=== PATIENT | female | born 2000 | race Caucasian/White ===

== ENCOUNTER → 2020-07-27 | Outpatient (CLI) | payer OTHER, SELFPAY ==
[2020-07-27 11:38] VITALS: BMI 24.8
[2020-07-29 17:20] LABS: HPV Reflexed? NOT INDICATED
== END | disposition home or self-care (01) ==
PROVIDERS: PCP Family Medicine; Referring Provider Nurse Practitioner Women's Health; Visit Provider Nurse Practitioner Women's Health
DX: N94.9 Unspecified condition associated with female genital organs and menstrual cycle (principal); Z12.4 Encounter for screening for malignant neoplasm of cervix
CPT/HCPCS: 87070; 87205; 88175; G0145

== ENCOUNTER → 2020-09-22 15:21 | Outpatient (CLI) | payer SELFPAY ==
[2020-09-22 14:11] VITALS: BMI 24.8
[2020-09-22 15:46] LABS: Absolute Lymphocyte Count 2.51 X10^3/uL (0.83-4.51); Absolute Neutrophil Count 6.2 X10^3/uL (2.0-7.7); Basophil# 0.08 X10^3/uL; Basophil% 0.8 % (0-1); Eosinophil# 0.14 X10^3/uL; Eosinophils% 1.5 % (0-5); Hematocrit 36.9 % (37-47); Hemoglobin 12.5 g/dL (12.0-15.0); Lymphocyte # 2.51 X10^3/ul (0.83-4.51); Lymphocyte % 26.4 % (19-41); Mean Corp Hgb Conc 33.9 g/dL (32-36); Mean Corpuscular Volume 91.6 fL (81-99); Mean Platelet Vol. 10.6 fl (6.2-12.0); Monocyte# 0.54 X10^3/uL; Monocyte% 5.7 % (0-10); NRBC Flagged by Analyzer 0 % (0-5); Neutrophil # 6.21 X10^3/uL (2.7-7.7); Neutrophil % 65.3 % (47-70); Platelet Count 209 K/mm3 (150-450); RBC Distribution Width CV 11.6 % (11.6-14.6); Red Blood Count 4.03 M/mm3 (4.2-5.4); White Blood Count 9.5 K/mm3 (4.4-11.0)
[2020-09-23 08:09] LABS: Rubella IgG Non-Reactive (Nonreactive)
== END ==
PROVIDERS: PCP Family Medicine; Referring Provider Obstetrics & Gynecology; Visit Provider Obstetrics & Gynecology
DX: Z34.00 Encounter for supervision of normal first pregnancy, unspecified trimester (principal)
CPT/HCPCS: 36415; 85025; 86762; 86850; 86900; 86901; 87086

== ENCOUNTER → 2020-12-02 12:41 | Outpatient (CLI) | payer SELFPAY ==
[2020-10-19 15:15] VITALS: BMI 24.3
--- NOTE | 2020-12-02 12:59 | US_ITS ---
STUDY: SECOND AND THIRD TRIMESTER OBSTETRICAL ULTRASOUND REASON FOR EXAM: Female, 20 years old anatomy LMP: 07/21/2020. TECHNIQUE: Transabdominal and Transvaginal TECHNICAL QUALITY: Adequate. PRIOR ULTRASOUND: None. FINDINGS: There is a single intrauterine fetus. The fetus is in a variable presentation. There is demonstrated cardiac activity with a heart rate of 148 bpm. There is a normal amniotic fluid volume. The largest amniotic fluid pocket measures 4 cm x 6 cm. The amniotic fluid index (LUCIE) is within normal limits. The placenta is posterior in location and is not low lying. There are Grade 0 placental changes. The cervix measures 4.3 cm in length. The bilateral adnexal regions are normal. BIOMETRY: BPD: 4.8 cm: 20 weeks, 2 days HC: 17.5 cm: 19 weeks, 6 days AC: 15.6 cm: 20 weeks, 5 days FL: 3.2 cm: 9 weeks, 5 days CI: 83% FL/BPD: 66% FL/HC: FL/AC: 20% HC/AC: 1.12 age by current US: 20 weeks, 2 days. GAIL by current US: 04/19/2021. Estimated weight: 350 grams, +/- 50 grams, 90 %. Age by LMP: 19 weeks, 1 days. GAIL by LMP: 04/27/2021. ANATOMY: Gender: Indeterminant Cranium: Normal lateral ventricles. Normal choroid plexus. Normal cerebellum. Normal cisterna magna. Normal face, nose and lips. Chest: Limited view of the four-chamber of the heart due to positioning. Abdomen/Pelvis: Normal diaphragm. Normal stomach. Normal abdominal wall. Normal cord insertion. Normal 3 vessel cord. Normal kidneys. Normal bladder. Spine: Normal cervical spine. Normal thoracic spine. Normal lumbar spine. Normal sacrum. Extremities: Normal bilateral upper extremities. Normal bilateral lower extremities. US/OB Anatomy Scan IMPRESSION: Single live intrauterine gestation with a mean gestational age of 20 weeks and 2 days. Limited four-chamber view of the heart due to the position. Electronically Signed: Thomas Carlson MD at 15:26 EDT , Service support ,
== END ==
PROVIDERS: PCP Family Medicine; Visit Provider Obstetrics & Gynecology
DX: Z34.01 Encounter for supervision of normal first pregnancy, first trimester (principal)
CPT/HCPCS: 76805; 76817

== ENCOUNTER → 2020-12-20 13:55 | Outpatient (CLI) | payer SELFPAY ==
--- NOTE | 2020-12-20 13:58 | US_ITS ---
STUDY: SECOND AND THIRD TRIMESTER OBSTETRICAL ULTRASOUND - LIMITED REASON FOR EXAM: Female, 20 years old . Follow up heart views LMP: 07/21/2020. PRIOR ULTRASOUND: Comparison is made with prior study 12/02/2020. TECHNIQUE: Transabdominal TECHNICAL QUALITY: Adequate. FINDINGS: There is a single intrauterine fetus. The fetus is in a cephalic presentation. There is demonstrated cardiac activity with a heart rate of 173 bpm. There is a normal amniotic fluid volume. The largest amniotic fluid pocket measures 4.9 cm x 6.2 cm. The amniotic fluid index (LUCIE) is within normal limits. The placenta is posterior in location and is not low lying. There are Grade 1 placental changes. The cervix measures 3.1 cm in length. BIOMETRY: Age by LMP: 21 weeks, 5 days. GAIL by LMP: 04/27/2020. Four-chamber heart views were obtained. They are unremarkable. US/OB Limited (No Biometrics) IMPRESSION: Normal amniotic fluid. Normal four-chamber heart views. Electronically Signed: Thomas Carlson MD at 14:47 EDT , Service support ,
== END ==
PROVIDERS: PCP Family Medicine; Referring Provider Obstetrics & Gynecology; Visit Provider Obstetrics & Gynecology
DX: Z34.90 Encounter for supervision of normal pregnancy, unspecified, unspecified trimester (principal)
CPT/HCPCS: 76815

== ENCOUNTER → 2021-01-30 08:36 | Outpatient (CLI) | payer SELFPAY ==
[2021-01-30 09:06] LABS: Absolute Lymphocyte Count 2.01 X10^3/uL (0.83-4.51); Absolute Neutrophil Count 11.5 X10^3/uL (2.0-7.7); Basophil# 0.07 X10^3/uL; Basophil% 0.5 % (0-1); Eosinophils% 1.4 % (0-5); Hematocrit 37.1 % (37-47); Hemoglobin 12.3 g/dL (12.0-15.0); Lymphocyte # 2.01 X10^3/ul (0.83-4.51); Lymphocyte % 13.6 % (19-41); Mean Corp Hgb Conc 33.2 g/dL (32-36); Mean Corpuscular Hgb 32.8 pg (27.0-32.0); Mean Corpuscular Volume 98.9 fL (81-99); Mean Platelet Vol. 10.4 fl (6.2-12.0); Monocyte# 0.85 X10^3/uL; Monocyte% 5.7 % (0-10); NRBC Flagged by Analyzer 0 % (0-5); Neutrophil # 11.47 X10^3/uL (2.7-7.7); Neutrophil % 77.5 % (47-70); Platelet Count 199 K/mm3 (150-450); RBC Distribution Width CV 12.2 % (11.6-14.6); RBC Distribution Width SD 44.1 fl (35.1-43.9); Red Blood Count 3.75 M/mm3 (4.2-5.4); White Blood Count 14.8 K/mm3 (4.4-11.0)
[2021-01-30 09:13] LABS: Glucose Challenge Gest 1H 50g 107 mg/dL (70-140)
== END ==
PROVIDERS: PCP Family Medicine; Referring Provider Nurse Practitioner Women's Health; Visit Provider Nurse Practitioner Women's Health
DX: Z34.92 Encounter for supervision of normal pregnancy, unspecified, second trimester (principal); Z13.1 Encounter for screening for diabetes mellitus; Z3A.21 21 weeks gestation of pregnancy
CPT/HCPCS: 36415; 82950; 85025

== ENCOUNTER → 2021-04-05 | Outpatient (CLI) | payer SELFPAY | END | disposition home or self-care (01) | LOC: LABSPEC 12:36 | PROVIDERS: Referring Provider Obstetrics & Gynecology; Visit Provider Obstetrics & Gynecology | DX: Z34.01 Encounter for supervision of normal first pregnancy, first trimester (principal) | CPT/HCPCS: 87081 ==

== ENCOUNTER → 2021-04-11 14:03 | Outpatient (CLI) | payer OTHER, SELFPAY ==
--- NOTE | 2021-04-11 14:06 | US_ITS ---
STUDY: ULTRASOUND BREAST - RIGHT REASON FOR EXAM: Female, 21 years old. Palpable mass TECHNIQUE: Axial and longitudinal images of the RIGHT breast were performed with a high resolution ultrasound transducer. # OF IMAGES: 14 COMPARISON: None. FINDINGS: RIGHT Breast: Homogeneous fatty background echotexture. Multiple longitudinal and transverse ultrasound images of the actually tail of the right breast fail to demonstrate a discrete solid or cystic mass.: US/Breast Limited Unilateral IMPRESSION: Normal right breast ultrasound. ASSESSMENT CATEGORY: BIRADS Category 1: Negative. A letter regarding these results will be sent to the patient by the facility within 30 days. Electronically Signed: Terry Lovell MD at 15:11 EST Tel , Service support ,
== END ==
PROVIDERS: Referring Provider Obstetrics & Gynecology; Visit Provider Obstetrics & Gynecology
DX: Q83.1 Accessory breast (principal)
CPT/HCPCS: 76642

== ENCOUNTER 2021-05-03 11:05 | Inpatient (IN) | payer SELFPAY ==
[2020-09-22 14:11] VITALS: BMI 24.8
[2021-05-03] VITALS (34 sets, daily range): BP systolic 115–133; BP diastolic 60–83; PULSE 59–118; TEMP 36.4–38.5; O2SAT 81–100; BMI 32.5
[2021-05-03] MEDS: Lactated Ringers 1,000 ML 50 ML IV (12:15)
[2021-05-03 12:24] LABS: Protein, Urine (Random) 14.1 mg/dL (<11.9); Protein:Creat Ratio 210 mg/g CRE (0-200)
[2021-05-03 12:27] LABS: Amphetamine Urine VISTA NEGATIVE (<1000 ng/mL); Barbiturate Urine VISTA NEGATIVE (< 200 ng/mL); Benzodiazepine Urine VISTA NEGATIVE (< 200 ng/mL); Cocaine Urine VISTA NEGATIVE (< 300 ng/mL); Ecstacy Urine VISTA NEGATIVE (< 500 ng/mL); Methadone Urine VISTA NEGATIVE (< 300 ng/mL); PCP Urine VISTA NEGATIVE (< 25 ng/mL); THC Urine VISTA NEGATIVE (< 50 ng/mL); Vista UDS pH Range 7
[2021-05-03 12:34] LABS: Absolute Lymphocyte Count 1.78 X10^3/uL (0.83-4.51); Basophil# 0.07 X10^3/uL; Basophil% 0.5 % (0-1); Eosinophil# 0.08 X10^3/uL; Eosinophils% 0.5 % (0-5); Hematocrit 33.4 % (37-47); Hemoglobin 11.6 g/dL (12.0-15.0); Lymphocyte # 1.78 X10^3/ul (0.83-4.51); Lymphocyte % 11.9 % (19-41); Mean Corp Hgb Conc 34.7 g/dL (32-36); Mean Corpuscular Hgb 32.5 pg (27.0-32.0); Mean Corpuscular Volume 93.6 fL (81-99); Mean Platelet Vol. 11.8 fl (6.2-12.0); Monocyte# 0.81 X10^3/uL; Monocyte% 5.4 % (0-10); NRBC Flagged by Analyzer 0 % (0-5); Neutrophil # 12.01 X10^3/uL (2.7-7.7); Neutrophil % 80.5 % (47-70); Platelet Count 178 K/mm3 (150-450); RBC Distribution Width SD 41.5 fl (35.1-43.9); Red Blood Count 3.57 M/mm3 (4.2-5.4); White Blood Count 14.9 K/mm3 (4.4-11.0)
--- NOTE | 2021-05-03 12:56 | HP.PCM.OB_ITS ---
HPI - General General Date of Admission: 05/03/21 HPI Narrative MERCEDES VAUGHN, is a 21 F who presents for IOL due to hypertension and post dates. She complains of a cough and runny nose. No fevers, chills, nausea, vomiting, or diarrhea. No RUQ pain, headaches, or visual changes. Maternal Data Information GAIL Calculator Estimated Delivery Date Method Current WG Current Estimate 04/27/21 LMP (Certain) 40w 6d PFSH PFSH Medical History (Updated 05/03/21 @ 12:[address] Rocio Mac, DO) Gestational HTN Headache Rubella non-immune status, antepartum Superficial varicosities Home Medications prenat.vits,paulette,[id number] 2 tab PO DAILY 09/13/20 [History Last Taken 1 Day Ago ~05/02/21] evening primrose oil 500 mg PO DAILY 05/03/21 [History Last Taken 05/01/21] Allergy/AdvReac Type Severity Reaction Status Date / Time No Known Allergies Allergy Verified 05/03/21 10:29 Family History Grandfather Heart disease Mother CVA (cerebral vascular accident), Onset Age: 35 Social History household members: spouse current occupational status: employed current occupation: Cleans homes pets and animals: No history of recent travel: Yes sexually active: Yes Smoking Status: Never smoker alcohol intake: current alcohol intake frequency: holidays/special occasions only substance use type: does not use diet: low carbohydrate frequency: 1-2 times per week seatbelt use: sometimes do you feel safe at home: Yes additional social history: - Mu History 1 Elective abortions Hx Para 0 Spontaneous abortions Hx # Term Pregnancies Ectopic pregnancies Hx # Pregnancies Multiple births # of living children Visit Details Expected Delivery Route/Plan plan IOL by 41 Labor Preferences- CB/BF classes: yes labor support person: Mu labor intervention preferences: no special pain management options preferred: epidural if needed cut cord/dad catch: maybe : yes PP control planned: condoms discussed possible routes of delivery and associated risks: [] special requests: [] Plans covid status: counseled regarding risk of covid in vs vaccination and declined vaccination flu vaccine: declined tdap vaccine: declined. rhogam: na LARC form signed: declined movement and labor precautions reviewed. Problem list reviewed and updated with the most current plan of care details and appropriate orders placed. Relevant counseling for the gestational age provided. Continue routine care and follow up unless otherwise noted in visit notes/problem list details OB Flowsheet Initial Weight: 150 lb Date -?-?-?-?-?-?-?-?-?-?-?-?- EGA Weight BP Urine Prot -?-?-?-?-?-?-?-?-?-?-?-?- Glucose FHR FuHt Pres Dilation -?-?-?-?-?-?-?-?-?-?-?-?- Effaced St Visit Note 09/22/20 -?-?-?-?-?-?-?-?-?-?-?-?- 9w 0d 150 lb (+0 oz) 118/66 -?-?-?-?-?-?-?-?-?-?-?-?- 175 -?-?-?-?-?-?-?-?-?-?-?-?- GP - CRL 25mm co nsistent with LMP 10/19/20 -?-?-?-?-?-?-?-?-?-?-?-?- 12w 6d 151 lb (+16 oz) 98/68 Negative -?-?-?-?-?-?-?-?-?-?-?-?- Negative 145 -?-?-?-?-?-?-?-?-?-?-?-?- GP - no cramping or bleeding. Has right axillary swelling consistent with lymph node - reassurance provided. Anatomy ordered. 11/17/20 -?-?-?-?-?-?-?-?-?-?-?-?- 17w 0d 154 lb 6 oz (+4 lb 6 oz) 112/80 Negative -?-?-?-?-?-?-?-?-?-?-?-?- Negative 145 -?-?-?-?-?-?-?-?-?-?-?-?- GP - no cramping or bleeding. +FM. Anatomy 12/02. 12/21/20 -?-?-?-?-?-?-?-?-?-?-?-?- 21w 6d 166 lb 8 oz (+16 lb 8 oz) 116/70 Negative -?-?-?-?-?-?-?-?-?-?-?-?- Negative 155 -?-?-?-?-?-?-?-?-?-?-?-?- GP - no lof, VB, DFM, ctx. Anatomy nl. Having gender reveal next weekend. 01/18/21 -?-?-?-?-?-?-?-?-?-?-?-?- 25w 6d 176 lb 4 oz (+26 lb 4 oz) 108/62 Negative -?-?-?-?-?-?-?-?-?-?-?-?- Negative 148 26 -?-?-?-?-?-?-?-?-?-?-?-?- -No Vb, LOF. Good FM. Denies concerns. 01/30/21 -?-?-?-?-?-?-?-?-?-?-?-?- 27w 4d 181 lb (+31 lb) 122/70 Negative -?-?-?-?-?-?-?-?-?-?-?-?- Negative 140 28 -?-?-?-?-?-?-?-?-?-?-?-?- Sm- no vb lof go od fm no regular ctx. cbc gct declined tdap 02/15/21 -?-?-?-?-?-?-?-?-?-?-?-?- 29w 6d 185 lb (+35 lb) 102/70 -?-?-?-?-?-?-?-?-?-?-?-?- 140 30 -?-?-?-?-?-?-?-?-?-?-?-?- Sm- no vb lof go od fm no regular ctx 03/03/21 -?-?-?-?-?-?-?-?-?-?-?-?- 32w 1d 190 lb 4 oz (+40 lb 4 oz) 110/70 Negative -?-?-?-?-?-?-?-?-?-?-?-?- Negative 165 32 -?-?-?-?-?-?-?-?-?-?-?-?- JV- no lof, vagi nal bleeding, or dec fm. varicosities present on back of legs. pt reassured 03/16/21 -?-?-?-?-?-?-?-?-?-?-?-?- 34w 0d 196 lb (+46 lb) 120/64 -?-?-?-?-?-?-?--?-?-?-?-?- 145 35 -?-?-?-?-?-?-?-?-?-?-?-?- SM- no vb lof go od fm no regular ctx 03/28/21 -?-?-?-?-?-?-?-?-?-?-?-?- 35w 5d 199 lb (+49 lb) 112/66 Negative -?-?-?-?-?-?-?-?-?-?-?-?- Negative 140 36 Cephalic -?-?-?-?-?-?-?-?-?-?-?-?- Sm- no vb lof go od fm no reulgar ctx 04/05/21 -?-?-?-?-?-?-?-?-?-?-?-?- 36w 6d 202 lb 2 oz (+52 lb 2 oz) 110/60 Negative -?-?-?-?-?-?-?-?-?-?-?-?- Negative 147 37 Cephalic 1 -?-?-?-?-?-?-?-?-?-?-?-?- 50 -3 JV- right axilla is enlarged consistent with accessory breast tissue. No lof, vaginal bleeding, or dec fm. GBS collected. Ultrasound ordered of breast 04/11/21 -?-?-?-?-?-?-?-?-?-?-?-?- 37w 5d 205 lb (+55 lb) 114/78 Negative -?-?-?-?-?-?-?-?-?-?-?-?- Negative 140 38 Cephalic -?-?-?-?-?-?-?-?-?-?-?-?- SM- no vb lof go od fm no regular ctx. 04/19/21 -?-?-?-?-?-?-?-?-?-?-?-?- 38w 6d 205 lb 8 oz (+55 lb 8 oz) 112/76 Negative -?-?-?-?-?-?-?-?-?-?-?-?- Negative 159 38 Cephalic 1 -?-?-?-?-?-?-?-?-?-?-?-?- 50 -3 JV- no lof , vaginal bleeding, or dec fm. labor precautions discussed. 04/26/21 -?-?-?-?-?-?-?-?-?-?-?-?- 39w 6d 210 lb 8 oz (+60 lb 8 oz) 130/86 Negative -?-?-?-?-?-?-?-?-?-?-?-?- Negative 140 41 Cephalic 1 -?-?-?-?-?-?-?-?-?-?-?-?- 50 -2 SM- `no vb lof good fm no regular ctx. 05/03/21 -?-?--?-?-?-?-?-?-?-?-?-?- 40w 6d 214 lb (+64 lb) 170/98 1+ -?-?-?-?-?-?-?-?-?-?-?-?- Negative 140 Cephalic 1 -?-?-?-?-?-?-?-?-?-?-?-?- 50 -3 JV- pt has a cough an congestion, bp is elevated, sending to L&D to start IOL now. [facility] labs and covid orddered. 05/03/21 -?-?-?-?-?-?-?-?-?-?-?-?- 40w 6d 214 lb 8.156 oz (+64 lb 8.156 oz) 123/71 124/78 -?-?-?-?-?-?-?-?-?-?-?-?- -?-?-?-?-?-?-?-?-?-?-?-?- ROS Constitutional Constitutional: Denies change in weight, fatigue, fever(s), headache(s), poor appetite or weakness Eyes Eyes: Denies blurry vision, change in vision, seeing flashes or spots in vision ENT HEENT: Denies dizziness, headache(s), loss taste/smell or sore throat Cardiovascular Cardiovascular: Denies chest pain, dizziness, dyspnea, irregular heart rhythm, leg edema, palpitations, rapid heart rate or vomiting Respiratory/Chest Respiratory/Chest: Denies chest tightness, cough, dyspnea or breast pain Gastrointestinal Gastrointestinal: Denies abdominal pain, anorexia, constipation, cramping, diarrhea, hemorrhoids, vomiting or weight changes Genitourinary Genitourinary: Denies dysuria, flank pain, genital lesions, genital pain, urinary frequency or urinary urgency Musculoskeletal Musculoskeletal: Denies back pain, difficulty walking, joint pain, limited range of motion, muscle cramps or numbness Integumentary Integumentary: Denies lesions or unusual bruising Neurologic Neurologic: Denies abnormal movements, abnormal speech, dizziness, numbness, seizure-like activity or syncope Psychiatric Psychiatric: Denies anxiety, behavioral changes, change in appetite, change in libido, cognitive impairment, confusion, depression, difficulty concentrating, hallucinations or suicidal thoughts Endocrine Endocrinology: Denies excessive sweating, polydipsia or polyuria Hematologic/Lymphatic Hematologic/Lymphatic: Denies easy bleeding, easy bruising or lymphadenopathy Allergic/Immunologic Allergic/Immunologic: Denies itchy eyes, lip swelling, seasonal rhinorrhea, rhinitis, throat swelling, tongue swelling, eczemia, wheezing or asthma Vital Signs Vital Signs Vital Signs: 05/03/21 11:41 05/03/21 11:56 05/03/21 12:33 Temperature 98.4 F Pulse Rate 77 86 73 Blood Pressure 123/71 H 124/78 H BP Systolic 123 124 BP Diastolic 71 78 Pulse Ox 98 Weight Weight: 214 lb 8.156 oz Body Mass Index (BMI) 32.5 Physical Exam Const alert, oriented x3, no apparent distress and healthy appearing General Appearance: cooperative; Negative for anxious HEENT normocephalic Face and Sinus: normal facial exam Eyes EOMs intact bilaterally and no scleral icterus General Eye: normal appearance of both eyes Neck full ROM and supple Lymph Lymphatic: no lymphadenopathy noted Chest Chest: abnormal inspection of the chest Resp normal respiratory effort Effort and Inspection: able to speak in complete sentences Cardio regular rate GI soft to palpation and non-tender Inspection: gravid Palpation: soft; Negative for tender external exam normal Amniotic Fluid: ROM+plus Back/Spine no CVA tenderness Extremity normal to inspection, full ROM and no clubbing, cyanosis or edema General Extremity: Negative for calf tenderness or edema Skin Lesions: no lesions Rashes: no rashes Psych mental status grossly normal Labs Labs Labs: Blood Type A POSITIVE Antibody Screen NEGATIVE Hct 33.4 % (37-47) L Hgb 11.6 g/dL (12.0-15.0) L Obstetrics US Syphilis Total Ab Pending Rubella IgG Antibody Non-Reactive (Nonreactive) Hep Bs Antigen Pending HIV 1&2 Antibody Pending Glucose 1 Hr 50 gm 107 mg/dL (70-140) Assessment & Plan (1) : QUALIFIERS: Weeks of gestation: 39 weeks Qualified Code(s): Z3A.39 - 39 weeks gestation of COMMENT: Declines genetic, ntd, and carrier screen. consents to labs at delivery- RPR, HIV, HepBC, tox. Anatomy US normal. GBS neg (2) Supervision of normal first : QUALIFIERS: Trimester: first trimester Qualified Code(s): Z34.01 - Encounter for supervision of normal first , first trimester COMMENT: PRR (SP labs), GAIL 04/27/21 boy Sam Spouse:Mu (3) Rubella non-immune status, antepartum: COMMENT: reocmmend avoidance and plan for MMR (4) Gestational hypertension: PLAN: Patient presents IOL, plan management for with cytotec and pit later tonight Pain management: plans epidural. GBS negative. Management of any complications: none. PIH labs are normal wt exception of pending lft's. I have reviewed the [facility] and made any clinically relevant updates.
[2021-05-03 13:28] LABS: Syphilis Antibodies Non-reactive
[2021-05-03 13:42] LABS: AST(SGOT) 19 U/L (15-37); Alanine Aminotransfer ALT/SGPT 18 U/L (13-56); Creatinine, Serum 0.72 mg/dL (0.55-1.02); EST Glomerular Filtration Rate 107 mL/min (>60); Est Glom Filt Rate - Afr Amer 130 mL/min (>60); Estimated Creatinine Clearance 122.59 ml/min; Uric Acid 4.8 mg/dL (2.6-6.0)
[2021-05-03] MEDS: Oxytocin 30 units/NS 500 ml 30 UNITS/500 ML IV.SOLN IV (13:49)
[2021-05-03 14:00] LABS: HIV - WCH Non-Reactive (Nonreactive); Hepatitis B Surface Antigen Non-Reactive (Nonreactive); Hepatitis C Antibody Non-Reactive (Nonreactive)
[2021-05-03 16:11] LABS: Chlamydia Trachomatis by PCR Negative (Negative); Neisserai gonorrhoeae by PCR Negative (Negative); Probe Check PASS; Sample Adequacy Control PASS; Specimen Processing Control PASS
--- NOTE | 2021-05-03 17:42 | PN_ITS ---
Progress Note pt is resting on her left side. tracing reviewed current tracing: FHT: Moderate variability reactive no decelerations category I tracing [place]: Contractions q 2-3 min membranes ruptured and clear fluid returned. IUPC placed cx /- reviewed tracing abnormalities since last note: one variable decel in review A/P: continue pitocin epidural prn.
[2021-05-03] MEDS: Lactated Ringers 500 ML 999 ML IV ×2 (18:44→22:11)
[2021-05-03] MEDS: fentaNYL-bupivacaine (epidural) 100 ML BAG EPIDURAL (19:56)
[2021-05-03] MEDS: Ondansetron 4 MG/2 ML Vial IV (20:21)
[2021-05-03] MEDS: 0.9% Saline Lock 10 ML Syringe IV (20:21)
[2021-05-03] MEDS: Lactated Ringers 1,000 ML 200 ML IV (20:23)
[2021-05-04] VITALS (28 sets, daily range): BP systolic 118–140; BP diastolic 58–87; PULSE 65–101; RESP 16–18; TEMP 36.3–37.7; O2SAT 92–98
[2021-05-04] MEDS: fentaNYL-bupivacaine (epidural) 100 ML BAG EPIDURAL ×2 (00:10→04:48)
[2021-05-04] MEDS: 0.9% Saline Lock 10 ML Syringe IV (00:27)
[2021-05-04] MEDS: Ondansetron 4 MG/2 ML Vial IV (00:27)
[2021-05-04] MEDS: Acetaminophen 500 MG Tablet PO (02:32)
[2021-05-04] MEDS: Lactated Ringers 1,000 ML 200 ML IV (02:32)
[2021-05-04] MEDS: Sodium Citrate/Citric Acid 30 ML UDC PO (06:06)
[2021-05-04] MEDS: Oxytocin 30 units/NS 500 ml 30 UNITS/500 ML IV.SOLN 334 UNITS IV (06:16)
[2021-05-04] MEDS: Carboprost Tromethamine 250 MCG/ML Ampul IM (06:22)
[2021-05-04] MEDS: miSOPROStol 200 MCG Tablet 1000 MCG RC (06:30)
--- NOTE | 2021-05-04 06:35 | EX.PCM.OBRPT ---
Assessment & Plan (1) Gestational hypertension: (2) : QUALIFIERS: Weeks of gestation: 39 weeks Qualified Code(s): Z3A.39 - 39 weeks gestation of COMMENT: Declines genetic, ntd, and carrier screen. consents to labs at delivery- RPR, HIV, HepBC, tox. Anatomy US normal. GBS neg (3) Supervision of normal first : QUALIFIERS: Trimester: first trimester Qualified Code(s): Z34.01 - Encounter for supervision of normal first , first trimester COMMENT: PRR (SP labs), GAIL 04/27/21 suzy Vargas Spouse:Mu (4) Rubella non-immune status, antepartum: COMMENT: reocmmend avoidance and plan for MMR Maternal Data Information GAIL Calculator Estimated Delivery Date Method Current WG Current Estimate 04/27/21 LMP (Certain) 41w 0d Vaginal Delivery Maternal Presentation Maternal Presentation: Medically Indicated Induction (for gestational hypertension ) Type of Induction: Pitocin Medical Reason for Induction: Gestational Hypertension Operative Information Date of Procedure: 05/04/21 Pre-Operative Diagnosis: 41 weeks with gestational hypertension and maternal exhaustion in labor Post-Operative Diagnosis: 41 weeks with gestational hypertension and maternal exhaustion in labor, 2nd degree perineal laceration Surgery / Procedure Performed: Vacuum Assisted Vaginal Delivery Type of Anesthesia: Epidural Estimated Blood Loss: 300cc Findings Description of Procedure: Patient began pushing and had been pushing x 3 hrs. The head was in a initially perceived OP position. The head was turned manually to the SARA position and the patient was consented on a vacuum extraction. The risks and benefits were discussed with the patient and verbal consent was obtained. A kiwi vacuum was applied to the head superior to the posterior fontanelles and pumped up to the green zone on the device. The head started to descend and the kiwi popped off. A second attempt was made and this resulted in delivery of the 's head. The Kiwi was removed, the patient was asked to take a few breaths while a nuchal cord was reduced x 1. She pushed again resulting in delivery of the anterior shoulder with minimal traction. Delayed cord clamping was employed for [id number] seconds. Cord was clamped and cut and gentle traction was applied to the cord and the placenta delivered spontaneously immediately following it was noted to be intact with three-vessel cord. The perineum and vagina were inspected and noted to have a 2nd degree perineal laceration. The rectal mucosa was noted to be intact as well as the rectal muscle. EBL was 300cc. Patient and infant tolerated delivery well. Presentation: Vertex Amniotic Membrane Rupture Type: Artificial Amniotic Fluid Description: Moderate meconium Placental Delivery Description: Spontaneous Placenta Disposition: [facility] Cord Vessel Description: 3 Vessels Cord Entanglement: Around neck x 1, loose A Gender: Male (1 minute): 7 (5 minute): 8 Delayed Cord Clamping: Yes Post Vaginal Delivery Medications Given After Delivery: IV Pitocin, IM Hemabate and - (rectal cytotec ) Episiotomy Description: None Laceration: 2nd degree Complication Complications: None Multi Select Codes Urinary/Genital Urinary/Genital CPT Codes: 90547 Vaginal Delivery global pkg (with vacuum extraction )
--- NOTE | 2021-05-04 06:50 | PCM.DC ---
Discharge Instructions Diet Discharge Diet: No restrictions Activity Discharge Activity: Return to Normal Activity, May Not Drive (while taking narcotic pain medications.) and May Shower May resume sexual activity in: 4-6 weeks Dressing / Incision Call your doctor if your incision/area has: Continuous Slow Oozing, Sudden Increased Bleeding, Increased Pain/ Swelling, Increased Redness and Foul Smelling Discharge Follow Up Care Please Follow Up With: Rocio Mac DO When: Call [phone] to make an appointment with your doctor in 6 weeks. If you had elevated blood pressure or 4th degree laceration, you will need to be seen in 2 weeks. Test Results: Test results from this visit will be discussed in further detail at your follow-up appointment, if applicable. Discharge Plan Admission Admit Date/Time: 05/03/21 11:05 Primary Reason for Your Visit: vaginal delivery Attending Provider: Rocio Mac Primary Care Provider: Dyan George,Beatriz Primary Discharge Orders/Prescriptions Prescriptions: New ibuprofen 800 mg tablet 800 mg PO Q8H PRN (Reason: pain) 7 Days Qty: 30 RF: 0 docusate sodium [Colace] 100 mg capsule 100 mg PO DAILY 14 Days Qty: 14 RF: 0 Continued prenat.vits,paulette,prf-gkjl-lnozq Tablet 2 tab PO DAILY RF: 0 evening primrose oil 500 mg Capsule 500 mg PO DAILY RF: 0 Referrals / Follow Up: Care Physician,No Primary [Primary Care Provider] - Disposition Disposition (needs filled in before D/C Order can be placed): Home, Self Care
[2021-05-04] MEDS: Ibuprofen 600 MG Tablet PO ×2 (08:13→16:50)
[2021-05-04] MEDS: Acetaminophen 500 MG Tablet 1000 MG PO (10:23)
--- NOTE | 2021-05-04 13:55 | NURSING ---
This nursing care partner reviewed the documentation completed by Ksenia Pillai, student nurse.
--- NOTE | 2021-05-04 16:36 | NURSING ---
Discussed MMR with pt and she is refusing vaccination at this time.
[2021-05-04] MEDS: oxyCODONE 5 MG Tablet PO (18:48)
[2021-05-04] MEDS: Caffeine 200 MG Tablet 400 MG PO (19:09)
[2021-05-05] VITALS (8 sets, daily range): BP systolic 120–132; BP diastolic 70–80; PULSE 71–94; RESP 14–18; TEMP 36.6–37.4; O2SAT 96–98
[2021-05-05] MEDS: Acetaminophen 500 MG Tablet 1000 MG PO ×4 (01:37→22:28)
[2021-05-05 07:35] LABS: Hematocrit 26.2 % (37-47); Hemoglobin 8.9 g/dL (12.0-15.0); Mean Corpuscular Hgb 32.4 pg (27.0-32.0); Mean Corpuscular Volume 95.3 fL (81-99); Mean Platelet Vol. 11.8 fl (6.2-12.0); Platelet Count 153 K/mm3 (150-450); RBC Distribution Width CV 12.7 % (11.6-14.6); RBC Distribution Width SD 43.1 fl (35.1-43.9); Red Blood Count 2.75 M/mm3 (4.2-5.4); White Blood Count 18.5 K/mm3 (4.4-11.0)
[2021-05-05] MEDS: Ibuprofen 600 MG Tablet PO ×2 (11:36→18:32)
--- NOTE | 2021-05-05 17:54 | PCM.PN.OB ---
Subjective Subjective Patient doing well without complaints. Tolerating PO. Ambulating and voiding without difficulty. Feeding well. Denies chest pain, shortness of breath, calf pain/swelling, fevers, chills, lightheadedness. Objective Data Objective Data Vital Signs: Vital Signs Temp Pulse Resp BP Pulse Ox 98 F 71 16 120/70 97 05/05/21 14:15 05/05/21 14:15 05/05/21 14:15 05/05/21 14:15 05/05/21 14:15 Oxygen Delivery Method Room Air Weight: 214 lb 8.156 oz Body Mass Index (BMI) 32.5 Intake & Output: Intake and Output for Last 24 Hours 05/03/21 05/04/21 05/05/21 23:59 23:59 23:59 Intake Total 3064.07 / 3064.07 / Output Total 1600 / 1600 350 / 350 Balance 1464.07 / 1464.07 1631.87 / 1631.87 Lab / Micro Data Result Diagrams: 05/05/21 07:20 05/03/21 12:15 Labs: Laboratory Results - last 24 hr 05/05/21 07:20: WBC 18.5 H, RBC 2.75 L, Hgb 8.9 L, Hct 26.2 L, MCV 95.3, MCH 32.4 H, MCHC 34.0, RDW Std Deviation 43.1, RDW Coeff of Denise 12.7, Plt Count 153, MPV 11.8 Micro: Microbiology 05/03/21 12:00 Nasal Secretion SARS-CoV-2 Antigen (Rapid) - Final ROS Constitutional Constitutional: Denies chills, fatigue, fever(s), poor appetite or weakness Eyes Eyes: Denies blurry vision, change in vision, seeing flashes or spots in vision ENT HEENT: Denies dizziness, headache(s), loss taste/smell or sore throat Cardiovascular Cardiovascular: Denies chest pain, dizziness, dyspnea, irregular heart rhythm, palpitations or rapid heart rate Respiratory/Chest Respiratory/Chest: Denies chest tightness, cough, dyspnea or breast pain Gastrointestinal Gastrointestinal: Denies abdominal pain, constipation or vomiting Genitourinary Genitourinary: Denies dysuria or flank pain Musculoskeletal Musculoskeletal: Denies difficulty walking, joint pain, limited range of motion or numbness Neurologic Neurologic: Denies abnormal movements, abnormal speech, dizziness, numbness, seizure-like activity or syncope Psychiatric Psychiatric: Denies anxiety, behavioral changes, change in appetite, confusion, depression or suicidal thoughts Physical Exam Const alert, oriented x3 and no apparent distress General Appearance: cooperative and comfortable Resp normal respiratory effort Cardio regular rate GI normal to inspection, nondistended, normoactive bowel sounds GI Narrative: uterus is firm below umbilicus Palpation: soft Bimanual Exam - Adnexa, Other: Negative for cul-de-sac fullness Back/Spine no CVA tenderness and thoraco-lumbar ROM normal Extremity normal to inspection, no clubbing, cyanosis or edema, no calf tenderness and no pedal edema Psych mental status grossly normal, thought process normal, cooperative, affect normal, speech normal, activity/motor behavior normal, denies homicidal ideation and denies suicidal ideation Assessment & Plan (1) Gestational hypertension: (2) : QUALIFIERS: Weeks of gestation: 39 weeks Qualified Code(s): Z3A.39 - 39 weeks gestation of COMMENT: Declines genetic, ntd, and carrier screen. consents to labs at delivery- RPR, HIV, HepBC, tox. Anatomy US normal. GBS neg (3) Supervision of normal first : QUALIFIERS: Trimester: first trimester Qualified Code(s): Z34.01 - Encounter for supervision of normal first , first trimester COMMENT: PRR (SP labs), GAIL 04/27/21 suzy Vargas Spouse:Mu (4) Accessory breast tissue of axilla: COMMENT: Breast US normal on 04/11 (5) Rubella non-immune status, antepartum: COMMENT: reocmmend avoidance and plan for MMR PLAN: s/p PPD # 1 1. routine post delivery care 2. breast feeding- support given 3. rh positive 4. rubella non immune 5. plan for dc home tomorrow
[2021-05-06] VITALS (63 sets, daily range): BP systolic 116–173; BP diastolic 57–96; PULSE 59–96; RESP 14–20; TEMP 36.9–37.4; O2SAT 95–99
[2021-05-06] MEDS: Ibuprofen 600 MG Tablet PO ×3 (01:59→16:12)
[2021-05-06] MEDS: Acetaminophen 500 MG Tablet 1000 MG PO (04:38)
--- NOTE | 2021-05-06 09:00 | NURSING ---
Dr Estrella notified of possible spinal headache, order for fioricet and she will evaluate after OR case .
[2021-05-06] MEDS: Acetaminophen/Butalbital/Caffe 1 Tablet 2 TABLET PO ×2 (09:50→21:22)
--- NOTE | 2021-05-06 11:14 | PCM.PN.OB ---
Subjective Subjective Patient doing well without complaints. Tolerating PO. Ambulating and voiding without difficulty. Feeding well. Denies chest pain, shortness of breath, calf pain/swelling, fevers, chills, lightheadedness. She continues to complain of headaches. She wonders if this could be a spinal headache. yesterday she took the 400 mg of caffeine without improvement. Objective Data Objective Data Vital Signs: Vital Signs Temp Pulse Resp BP Pulse Ox 98.5 F 61 20 H 132/78 H 97 05/06/21 08:30 05/06/21 08:30 05/06/21 08:30 05/06/21 08:30 05/06/21 08:30 Oxygen Delivery Method Room Air Weight: 214 lb 8.156 oz Body Mass Index (BMI) 32.5 Intake & Output: Intake and Output for Last 24 Hours 05/04/21 05/05/21 05/06/21 23:59 23:59 23:59 Intake Total 1981.87 / 1980.87 Output Total 350 / 350 Balance 1631.87 / 1631.87 Lab / Micro Data Result Diagrams: 05/05/21 07:20 05/03/21 12:15 Micro: Microbiology 05/03/21 12:00 Nasal Secretion SARS-CoV-2 Antigen (Rapid) - Final ROS Constitutional Constitutional: Denies chills, fatigue, fever(s), poor appetite or weakness Eyes Eyes: Denies blurry vision, change in vision, seeing flashes or spots in vision ENT HEENT: Denies dizziness, loss taste/smell or sore throat Cardiovascular Cardiovascular: Denies chest pain, dizziness, dyspnea, irregular heart rhythm, palpitations or rapid heart rate Respiratory/Chest Respiratory/Chest: Denies chest tightness, cough, dyspnea or breast pain Gastrointestinal Gastrointestinal: Denies abdominal pain, constipation or vomiting Genitourinary Genitourinary: Denies dysuria or flank pain Musculoskeletal Musculoskeletal: Denies difficulty walking, joint pain, limited range of motion or numbness Neurologic Neurologic: Denies abnormal movements, abnormal speech, dizziness, numbness, seizure-like activity or syncope Psychiatric Psychiatric: Denies anxiety, behavioral changes, change in appetite, confusion, depression or suicidal thoughts Physical Exam Const alert, oriented x3 and no apparent distress General Appearance: cooperative and comfortable Resp normal respiratory effort Cardio regular rate GI normal to inspection, nondistended, normoactive bowel sounds GI Narrative: uterus is firm below umbilicus Palpation: soft Bimanual Exam - Adnexa, Other: Negative for cul-de-sac fullness Back/Spine no CVA tenderness and thoraco-lumbar ROM normal Extremity normal to inspection, no clubbing, cyanosis or edema, no calf tenderness and no pedal edema Psych mental status grossly normal, thought process normal, cooperative, affect normal, speech normal, activity/motor behavior normal, denies homicidal ideation and denies suicidal ideation Assessment & Plan (1) Gestational hypertension: (2) : QUALIFIERS: Weeks of gestation: 39 weeks Qualified Code(s): Z3A.39 - 39 weeks gestation of COMMENT: Declines genetic, ntd, and carrier screen. consents to labs at delivery- RPR, HIV, HepBC, tox. Anatomy US normal. GBS neg (3) Supervision of normal first : QUALIFIERS: Trimester: first trimester Qualified Code(s): Z34.01 - Encounter for supervision of normal first , first trimester COMMENT: PRR (SP labs), GAIL 04/27/21 boy Sam Spouse:Mu (4) Accessory breast tissue of axilla: COMMENT: Breast US normal on 04/11 (5) Rubella non-immune status, antepartum: COMMENT: reocmmend avoidance and plan for MMR PLAN: s/p PPD #2 Doing well other than persistent headache when moves from lying to sitting or sitting to standing. to see anesthesia before dc. will also try muscle relaxer due to pain in suboccipital region 1. routine post delivery care 2. breast feeding- support given 3. rh positive 4. rubella immune 5. plan to dc home this afternoon.
[2021-05-06] MEDS: Senna/Docusate Sodium 1 Tablet PO (14:14)
[2021-05-06] MEDS: Methocarbamol 500 MG Tablet 1000 MG PO (14:14)
[2021-05-06] MEDS: Labetalol (Prefilled) 20 MG/4 ML IV ×2 (17:05→18:01)
--- NOTE | 2021-05-06 17:06 | NURSING ---
Pt has persistent WU. BP checked. 157 systolic. Repeat pressure 162/101. Pt became nauseaous and started vomiting. Call placed to Dr. Lizarraga. Telephone order for pre-e lab panel and 20mg IV Labedalol. See Mar for administration. Will call Dr. Lizarraga back with results and repeat pressures.
[2021-05-06 17:11] LABS: Hematocrit 26.7 % (37-47); Hemoglobin 8.9 g/dL (12.0-15.0); Mean Corp Hgb Conc 33.3 g/dL (32-36); Mean Corpuscular Hgb 31.9 pg (27.0-32.0); Mean Corpuscular Volume 95.7 fL (81-99); Platelet Count 201 K/mm3 (150-450); RBC Distribution Width CV 12.7 % (11.6-14.6); RBC Distribution Width SD 43.8 fl (35.1-43.9); Red Blood Count 2.79 M/mm3 (4.2-5.4); White Blood Count 15.4 K/mm3 (4.4-11.0)
[2021-05-06 17:23] LABS: AST(SGOT) 26 U/L (15-37); Alanine Aminotransfer ALT/SGPT 22 U/L (13-56); Creatinine, Serum 0.91 mg/dL (0.55-1.02); EST Glomerular Filtration Rate 81 mL/min (>60); Est Glom Filt Rate - Afr Amer 98 mL/min (>60); Estimated Creatinine Clearance 96.99 ml/min; Uric Acid 4.5 mg/dL (2.6-6.0)
[2021-05-06] MEDS: Labetalol 100 MG Tablet PO ×2 (17:32→21:22)
[2021-05-06] MEDS: 0.9% Saline Lock 10 ML Syringe IV (17:33)
--- NOTE | 2021-05-06 17:53 | EKG12_ITS ---
Test Reason : CHEST PRESSURE Blood Pressure : / mmHG Vent. Rate : 084 BPM Atrial Rate : 084 BPM P-R Int : 134 ms QRS Dur : 090 ms QT Int : 388 ms P-R-T Axes : 072 054 036 degrees QTc Int : 458 ms Normal sinus rhythm Normal ECG No previous ECGs available Confirmed by ARVIND GAN, JUDIT ([id number]), market editor MARÍA BROOKS ([id number]) on 05/09/2021 10:02:17 AM Referred By: DR MOBLEY Confirmed By:JUDIT SAMUELS MD
[2021-05-06] MEDS: Lactated Ringers 1,000 ML 50 ML IV (18:07)
[2021-05-06] MEDS: Magnesium Sulfate 4gm/100mL 4 GM/100 ML IV.SOLN. IV (18:07)
[2021-05-06] MEDS: Magnesium Sulfate 4gm/100mL 2 GM/50 ML IV.SOLN. IV (18:25)
[2021-05-06] MEDS: Magnesium Sulfate 20 GM/500 ML BAG IV (18:36)
[2021-05-06 19:03] LABS: Creatinine, Urine (random) < 13.00 mg/dL (NO RANGE EST.); Protein, Urine (Random) 10.8 mg/dL (<11.9)
[2021-05-07] VITALS (47 sets, daily range): BP systolic 98–134; BP diastolic 56–86; PULSE 67–94; RESP 16; TEMP 36.6–37.4; O2SAT 95–98
[2021-05-07] MEDS: Acetaminophen/Butalbital/Caffe 1 Tablet 2 TABLET PO ×4 (01:29→13:52)
[2021-05-07] MEDS: Ibuprofen 600 MG Tablet PO ×2 (02:50→13:53)
[2021-05-07] MEDS: Magnesium Sulfate 20 GM/500 ML BAG IV (04:12)
[2021-05-07] MEDS: Labetalol 100 MG Tablet PO ×2 (09:21→22:08)
--- NOTE | 2021-05-07 11:00 | PCM.PN.OB ---
Subjective Subjective Patient still complaining of headache when sits all the way up and tries to stand. magnesium sulfate was decreased to 1 g this am due to improvement in blood pressures and involuntary loss of urine since start of the medication. She is tolerating PO. Feeding well. Denies chest pain, shortness of breath, calf pain/swelling, fevers, chills, lightheadedness. Last night she had an episode of chest tightness after she vomited and EKG was normal. She is now doing better and is requesting blood patch. Yesterday she had declined. After discussing with Dr. Estrella from anesthesia, she will be by later today to perform the patch due to conflicting surgeries in the main OR. Objective Data Objective Data Vital Signs: Vital Signs Temp Pulse Resp BP Pulse Ox 97.8 F 79 16 120/75 97 05/07/21 10:12 05/07/21 10:12 05/07/21 10:12 05/07/21 10:12 05/07/21 10:12 Oxygen Delivery Method Room Air Weight: 214 lb 8.156 oz Body Mass Index (BMI) 32.5 Intake & Output: Intake and Output for Last 24 Hours 05/05/21 05/06/21 05/07/21 23:59 23:59 23:59 Intake Total 425 / 425 967.5 / 967.5 Output Total 1999 / 1999 1350 / 1350 Balance -1575 / -1575 -382.5 / -382.5 Lab / Micro Data Result Diagrams: 05/06/21 17:00 05/06/21 17:00 Labs: Laboratory Results - last 24 hr 05/06/21 17:00: WBC 15.4 H, RBC 2.79 L, Hgb 8.9 L, Hct 26.7 L, MCV 95.7, MCH 31.9, MCHC 33.3, RDW Std Deviation 43.8, RDW Coeff of Denise 12.7, Plt Count 201, MPV 11.0 05/06/21 17:00: U Random Total Protein 10.8, Urine Creatinine < 13.00, Protein/Creatinin Ratio TNP 05/06/21 17:00: Creatinine 0.91, Estim Creat Clear Calc 96.99, Est GFR (MDRD) Af Amer 98, Est GFR (MDRD) Non-Af 81, Uric Acid 4.5, AST 26, ALT 22 Micro: Microbiology 05/03/21 12:00 Nasal Secretion SARS-CoV-2 Antigen (Rapid) - Final ROS Constitutional Constitutional: Denies chills, fatigue, fever(s), poor appetite or weakness Eyes Eyes: Denies blurry vision, change in vision, seeing flashes or spots in vision ENT HEENT: Denies dizziness, headache(s), loss taste/smell or sore throat Cardiovascular Cardiovascular: Denies chest pain, dizziness, dyspnea, irregular heart rhythm, palpitations or rapid heart rate Respiratory/Chest Respiratory/Chest: Denies chest tightness, cough, dyspnea or breast pain Gastrointestinal Gastrointestinal: Denies abdominal pain, constipation or vomiting Genitourinary Genitourinary: Denies dysuria or flank pain Musculoskeletal Musculoskeletal: Denies difficulty walking, joint pain, limited range of motion or numbness Neurologic Neurologic: Denies abnormal movements, abnormal speech, dizziness, numbness, seizure-like activity or syncope Psychiatric Psychiatric: Denies anxiety, behavioral changes, change in appetite, confusion, depression or suicidal thoughts Physical Exam Const alert, oriented x3 and no apparent distress General Appearance: cooperative and comfortable Resp normal respiratory effort Cardio regular rate GI normal to inspection, nondistended, normoactive bowel sounds GI Narrative: uterus is firm below umbilicus Palpation: soft Bimanual Exam - Adnexa, Other: Negative for cul-de-sac fullness Back/Spine no CVA tenderness and thoraco-lumbar ROM normal Extremity normal to inspection, no clubbing, cyanosis or edema, no calf tenderness and no pedal edema Psych mental status grossly normal, thought process normal, cooperative, affect normal, speech normal, activity/motor behavior normal, denies homicidal ideation and denies suicidal ideation Assessment & Plan (1) Gestational hypertension: PLAN: s/p PPD # 2, complications late yesterday with severe blood pressures and starting magnesium sulfate, did not allow for early discharge. Due to ongoing headaches and still on 24 hrs of mag, will not be able to dc to home until tomorrow. -will dc mag at 6 pm tonight -rpt cbc today for anesthesia purposes to know plt level -continue current pain medicine regimen. 1. routine post delivery care 2. breast feeding- support given 3. rh positive 4. rubella non- immune
[2021-05-07] MEDS: Lactated Ringers 1,000 ML 50 ML IV (11:28)
[2021-05-07 14:05] LABS: Mucous, Urine 0 SEEN /hpf (<or=2+)
[2021-05-07 14:14] LABS: Color, Urine Yellow (Yellow); Glucose, Dipstick Normal (Normal); Ketone-Dipstick 5 mg/dl (Negative); Leukocyte Esterase-Dipstick 25 /ul (Negative); Nitrite-Dipstick Negative (Negative); Occult Blood-Urine 250 /ul (Negative); Protein-Dipstick Negative (Negative); Urine Bilirubin Dipstick Negative (Negative); Urine Clarity Sl. Cloudy (Clear); Urine Urobilinogen Normal (Normal)
[2021-05-07 14:21] LABS: Bacteria RARE /hpf (None Seen); Red Blood Cells-Urine 10-25 SEEN /hpf (0-5); Squamous Epithelial Cells - UA 0-5 SEEN /hpf (5-10); White Blood Cells 0-5 SEEN /hpf (0-5)
[2021-05-07 15:49] LABS: Hematocrit 27.1 % (37-47); Hemoglobin 9.2 g/dL (12.0-15.0); Mean Corp Hgb Conc 33.9 g/dL (32-36); Mean Corpuscular Hgb 32.4 pg (27.0-32.0); Mean Corpuscular Volume 95.4 fL (81-99); Mean Platelet Vol. 10.8 fl (6.2-12.0); Platelet Count 225 K/mm3 (150-450); RBC Distribution Width CV 12.6 % (11.6-14.6); RBC Distribution Width SD 43.2 fl (35.1-43.9); Red Blood Count 2.84 M/mm3 (4.2-5.4); White Blood Count 12.5 K/mm3 (4.4-11.0)
--- NOTE | 2021-05-07 16:40 | PCM.OP.PRO ---
Assessment & Plan Assessment/Plan (1) Post-dural puncture headache: PLAN: 21 yo F who had a epidural for labor on 05/03/2021. Per the anesthesia record a possible dural puncture occurred at L2/L3. Patient reported a headache started shortly after that. Patient states she later pushed for 3 hours. On evaluation of the headache on 05/06/21, patient was offered a blood patch and declined stating she believed it was all musculoskeletal pain and wanted to try oral meds. On 05/06/21 patient's BP spiked and was started on magnesium. On recheck today, patient states her headache is not getting better and is requesting a blood patch. A CBC was rechecked today and her platelets are 225. Patient states she is eating and drinking ok. Walking around room at times. No troubles ambulating. No changes in vision and no N/V. Procedure Report Date of Procedure: 05/07/21 The procedure risks, benefits and alternatives were discussed with the patient and a proper consent was obtained. The patient was placed in a sitting position and the skin was prepped and draped in a sterile fashion. A tourniquet was placed around the upper arm and the antecubital fossa was prepped and draped in a sterile classical fashion. Local anesthesia was infiltrated subcutaneous and deep at L2/L3. An 18-gauge Tuohy needle was then placed in the epidural space on the first pass utilizing loss of resistance technique with a saline filled syringe. 20 cc of autologous blood was withdrawn from the Left antecubital vein in a sterile fashion by the nurse. This was then injected into the epidural space by anesthesiologist with negative aspiration prior to injection. The patient was placed in a recumbent position for another 60 minutes before being allowed to sit up and ambulate. The patient tolerated the procedure well without any apparent difficulties or complications.
--- NOTE | 2021-05-07 17:20 | NURSING ---
Dr. Estrella at bedside for blood patch procedure. Consent signed and time out preformed. Room set up per procedural instructions and IV access obtained to Left Antecubital. Sterile technique maintained. Blood withdrawn from IV site per direction of Dr. Estrella and handed to Dr. Estrella maintaining sterility. Patient laid in supine position at end of procedure. Will remain supine for 60 minutes. Vitals assessed Q5min throughout procedure and after. Patient stable and reports 0/10 pain when lying supine.
--- NOTE | 2021-05-07 18:41 | NURSING ---
All charting in regards to Left Hand IV was meant to be charted on 20g Right forearm IV started 05/06/21. Left hand IV was removed 05/06/21 when Right Forearm IV was started. Magnesium and LR infused into Right Forearm IV site for this RNs shift until both medications were stopped at 1823.
--- NOTE | 2021-05-07 18:46 | NURSING ---
This RN has reviewed and agrees with all charting completed by SN Bouchra
[2021-05-07] MEDS: Senna/Docusate Sodium 1 Tablet PO (22:08)
[2021-05-08 01:49] VITALS: BP 134/72; PULSE 86; RESP 16; TEMP 37.2; O2SAT 96
[2021-05-08 01:50] VITALS: BP 134/72; PULSE 78
[2021-05-08] MEDS: Ibuprofen 600 MG Tablet PO (06:19)
[2021-05-08 07:25] VITALS: BP 119/68; PULSE 72
[2021-05-08 07:26] VITALS: BP 119/68; PULSE 72; RESP 16; TEMP 36.7; O2SAT 97
--- NOTE | 2021-05-08 08:08 | PN.OBGYN_ITS ---
Subjective Subjective Patient doing well without complaints. Headache resolved. Tolerating PO. Ambulating and voiding without difficulty. Feeding well. Denies chest pain, shortness of breath, calf pain/swelling, fevers, chills, lightheadedness. Objective Data Objective Data Vital Signs: Vital Signs Temp Pulse Resp BP Pulse Ox 98.1 F 72 16 119/68 97 05/08/21 07:26 05/08/21 07:26 05/08/21 07:26 05/08/21 07:26 05/08/21 07:26 Oxygen Delivery Method Room Air Weight: 214 lb 8.156 oz Body Mass Index (BMI) 32.5 Intake & Output: Intake and Output for Last 24 Hours 05/06/21 05/07/21 05/08/21 23:59 23:59 23:59 Intake Total 425 / 425 3709.16 / 3709.16 Output Total 1999 1750 / 1750 Balance -1575 / -1575 1959.16 / 1958.16 Lab / Micro Data Result Diagrams: 05/07/21 15:35 05/06/21 17:00 Labs: Laboratory Results - last 24 hr 05/07/21 13:45: Urine Color Yellow, Urine Clarity Sl. Cloudy, Urine pH 7.0, Ur Specific [place] 1.010, Urine Protein Negative, Urine Glucose (UA) Normal, Urine Ketones 5 H, Urine Occult Blood 250 H, Urine Nitrite Negative, Urine Bilirubin Negative, Urine Urobilinogen Normal, Ur Leukocyte Esterase 25 H, Urine RBC 10-25 SEEN, Urine WBC 0-5 SEEN, Ur Squamous Epith Cells 0-5 SEEN, Urine Bacteria RARE, Urine Mucus 0 SEEN 05/07/21 15:35: WBC 12.5 H, RBC 2.84 L, Hgb 9.2 L, Hct 27.1 L, MCV 95.4, MCH 32.4 H, MCHC 33.9, RDW Std Deviation 43.2, RDW Coeff of Denise 12.6, Plt Count 225, MPV 10.8 Micro: Microbiology 05/03/21 12:00 Nasal Secretion SARS-CoV-2 Antigen (Rapid) - Final Physical Exam Const alert and oriented x3 HEENT normocephalic Eyes PERRL Neck full ROM Resp normal respiratory effort GI soft to palpation GI Narrative: FF below U Assessment & Plan (1) Vaginal delivery: (2) Gestational hypertension: QUALIFIERS: Trimester: unspecified trimester Qualified Code(s): O13.9 - Gestational [-induced] hypertension without significant proteinuria, unspecified trimester (3) Rubella non-immune status, antepartum: COMMENT: reocmmend avoidance and plan for MMR PLAN: s/p PPD # 3 1. routine post delivery care 2. breast feeding- support given 3. rh positive 4. rubella nonimmune 5. BP cuff 6. Rx labetalol as directed, instruct to call with dizziness, low BP reading to decrease dose. 7. Bp check 1 week office
[2021-05-08 10:54] VITALS: BP 120/67; PULSE 87
[2021-05-08] MEDS: Labetalol 100 MG Tablet PO (11:04)
[2021-05-08 12:20] VITALS: BP 120/73; PULSE 102; PULSE 81; RESP 16; TEMP 36.6; O2SAT 97
== END 2021-05-08 13:40 | disposition home or self-care (01) | DRG 807 ==
PROVIDERS: Admitting Provider Obstetrics & Gynecology; Visit Provider Obstetrics & Gynecology
DX: O13.4 Gestational [pregnancy-induced] hypertension without significant proteinuria, complicating childbirth (principal); Z37.0 Single live birth; O48.0 Post-term pregnancy; Q83.1 Accessory breast; O77.0 Labor and delivery complicated by meconium in amniotic fluid; O70.1 Second degree perineal laceration during delivery; Z20.822 Contact with and (suspected) exposure to COVID-19; Z3A.41 41 weeks gestation of pregnancy; O75.81 Maternal exhaustion complicating labor and delivery; O69.81X0 Labor and delivery complicated by cord around neck, without compression, not applicable or unspecified; O89.4 Spinal and epidural anesthesia-induced headache during the puerperium
CPT/HCPCS: 59025; 59050; 80307; 81001; 82565; 82570; 84156; 84450; 84460; 84550; 85025; 85027; 86703; 86780; 86803; 86850; 86900; 86901; 87340; 87426; 87491; 87591; 93005; 99218; 99251; J7120; A4216; G0378; G0463; J2405

== ENCOUNTER → 2023-07-26 | Outpatient (CLI) | payer SELFPAY ==
[2023-07-26 09:50] LABS: Absolute Lymphocyte Count 2.18 X10^3/uL (0.83-4.51); Basophil# 0.06 X10^3/uL; Basophil% 0.8 % (0-1); Eosinophils% 1.3 % (0-5); Hemoglobin 12.8 g/dL (12.0-15.0); Lymphocyte # 2.18 X10^3/ul (0.83-4.51); Lymphocyte % 27.7 % (19-41); Mean Corp Hgb Conc 33.7 g/dL (32-36); Mean Corpuscular Hgb 30.8 pg (27.0-32.0); Mean Corpuscular Volume 91.3 fL (81-99); Mean Platelet Vol. 10.8 fl (6.2-12.0); Monocyte# 0.47 X10^3/uL; NRBC Flagged by Analyzer 0 % (0-5); Neutrophil # 5.03 X10^3/uL (2.7-7.7); Neutrophil % 63.8 % (47-70); Platelet Count 240 K/mm3 (150-450); RBC Distribution Width CV 12.1 % (11.6-14.6); RBC Distribution Width SD 40.6 fl (35.1-43.9); Red Blood Count 4.16 M/mm3 (4.2-5.4); White Blood Count 7.9 K/mm3 (4.4-11.0)
[2023-07-26 10:30] LABS: AST(SGOT) 14 U/L (15-37); Alanine Aminotransfer ALT/SGPT 16 U/L (13-56); Albumin, Serum 3.8 g/dL (3.2-5.0); Alkaline Phosphatase 52 U/L (45-117); Anion Gap 4 (5-15); BUN 10 mg/dL (7-18); BUN/Creat Ratio 13.8 RATIO (10-20); Calcium,Total 9.3 mg/dL (8.5-10.1); Chloride 108 mmol/L (98-107); Creatinine, Serum 0.72 mg/dL (0.55-1.02); EST Glomerular Filtration Rate 104 mL/min (>60); Est Glom Filt Rate - Afr Amer 126 mL/min (>60); Globulin 3.9 g/dL (2.2-4.2); Glucose 106 mg/dL (74-106); Potassium 3.9 mmol/L (3.5-5.1); Protein, Total 7.7 g/dL (6.4-8.2); Sodium Level 137 mmol/L (136-145)
[2023-07-26 11:10] LABS: HIV - WCH Non-Reactive (Nonreactive); Hepatitis B Surface Antigen Non-Reactive (Nonreactive); Hepatitis C Antibody Non-Reactive (Nonreactive); Rubella IgG Non-Reactive (Nonreactive); Syphilis Antibodies Non-reactive
[2023-07-26 11:47] LABS: Protein, Urine (Random) 15.5 mg/dL (<11.9); Protein:Creat Ratio 162 mg/g CRE (0-200)
[2023-07-29 00:06] LABS: Chlamydia By Nucleic Acid AMP Negative (Negative); Gonococcus By Nucleic Acid AMP Negative (Negative)
[2023-07-31 19:46] LABS: HPV Reflexed? NOT INDICATED
== END | disposition home or self-care (01) ==
PROVIDERS: Referring Provider Advanced Practice Midwife; Visit Provider Advanced Practice Midwife
DX: Z12.4 Encounter for screening for malignant neoplasm of cervix (principal); Z34.90 Encounter for supervision of normal pregnancy, unspecified, unspecified trimester; Z3A.00 Weeks of gestation of pregnancy not specified; O09.299 Supervision of pregnancy with other poor reproductive or obstetric history, unspecified trimester
CPT/HCPCS: 36415; 80053; 82570; 84156; 85025; 86703; 86762; 86780; 86803; 86850; 86900; 86901; 87086; 87340; 87491; 87591; 88175; G0145

== ENCOUNTER → 2023-10-07 | Outpatient (CLI) | payer SELFPAY ==
--- NOTE | 2023-10-07 15:11 | US_ITS ---
STUDY: SECOND AND THIRD TRIMESTER OBSTETRICAL ULTRASOUND REASON FOR EXAM: Female, 23 years old Anatomy LMP: Unknown. TECHNIQUE: Transabdominal and Transvaginal TECHNICAL QUALITY: Adequate. PRIOR ULTRASOUND: None. FINDINGS: There is a single intrauterine fetus. The fetus is in a variable presentation. There is demonstrated cardiac activity with a heart rate of 166 bpm. There is a normal amniotic fluid volume. The largest amniotic fluid pocket measures 5.8 cm. The placenta is posterior with a marginal previa. There are Grade 0 placental changes. The cervix measures 4.4 cm in length. The bilateral adnexal regions are normal. BIOMETRY: BPD: 4.4 cm: 19 weeks, 2 days HC: 17.8 cm: 20 weeks, 2 days AC: 15.6 cm: 20 weeks, 6 days FL: 3.3 cm: 20 weeks, 3 days age by current US: 20 weeks, 1 days. GAIL by current US: February 23, 2024. Estimated weight: 354 grams, +/- 53 grams. ANATOMY: Cranium: Normal lateral ventricles. Normal choroid plexus. Normal cerebellum. Normal cisterna magna. Normal face, nose and lips. Chest: Normal 4-chamber heart. Abdomen/Pelvis: Normal diaphragm. Normal stomach. Normal abdominal wall. Normal cord insertion. Normal 3 vessel cord. Normal kidneys. Normal bladder. Spine: Normal cervical spine. Normal thoracic spine. Normal lumbar spine. Normal sacrum. Extremities: Normal bilateral upper extremities. Normal bilateral lower extremities. US/OB Anatomy w/ Transvaginal IMPRESSION: Single intrauterine gestation 20 weeks 1 day with estimated due date February 23, 2024. No anomalies on routine anatomic survey. Marginal placenta previa. Electronically Signed: Ayo Ennis MD at 23:15 EDT ,
== END | disposition home or self-care (01) ==
PROVIDERS: PCP Nurse Practitioner Family; Referring Provider Obstetrics & Gynecology; Visit Provider Obstetrics & Gynecology
DX: Z34.90 Encounter for supervision of normal pregnancy, unspecified, unspecified trimester (principal); Z3A.00 Weeks of gestation of pregnancy not specified
CPT/HCPCS: 76805; 76817

== ENCOUNTER → 2023-11-19 | Outpatient (CLI) | payer SELFPAY ==
[2023-11-19 13:19] LABS: Absolute Lymphocyte Count 2.24 X10^3/uL (0.83-4.51); Absolute Neutrophil Count 9.7 X10^3/uL (2.0-7.7); Basophil# 0.06 X10^3/uL; Basophil% 0.5 % (0-1); Eosinophils% 0.8 % (0-5); Hematocrit 35.5 % (37-47); Hemoglobin 11.8 g/dL (12.0-15.0); Lymphocyte # 2.24 X10^3/ul (0.83-4.51); Lymphocyte % 17.3 % (19-41); Mean Corp Hgb Conc 33.2 g/dL (32-36); Mean Corpuscular Hgb 32.1 pg (27.0-32.0); Mean Corpuscular Volume 96.5 fL (81-99); Mean Platelet Vol. 10.7 fl (6.2-12.0); Monocyte# 0.69 X10^3/uL; Monocyte% 5.3 % (0-10); NRBC Flagged by Analyzer 0 % (0-5); Neutrophil # 9.74 X10^3/uL (2.7-7.7); Platelet Count 214 K/mm3 (150-450); RBC Distribution Width CV 12.7 % (11.6-14.6); RBC Distribution Width SD 44.5 fl (35.1-43.9); Red Blood Count 3.68 M/mm3 (4.2-5.4)
[2023-11-19 13:33] LABS: Glucose Challenge Gest 1H 50g 113 mg/dL (70-140)
[2023-11-19 14:04] LABS: HIV - WCH Non-Reactive (Nonreactive); Syphilis Antibodies Non-reactive
== END | disposition home or self-care (01) ==
LOC: LAB 12:55
PROVIDERS: PCP Nurse Practitioner Family; Referring Provider Nurse Practitioner Women's Health; Visit Provider Nurse Practitioner Women's Health
DX: Z34.90 Encounter for supervision of normal pregnancy, unspecified, unspecified trimester (principal); Z3A.22 22 weeks gestation of pregnancy
CPT/HCPCS: 36415; 82950; 85025; 86703; 86780

== ENCOUNTER → 2023-12-03 | Outpatient (CLI) | payer SELFPAY ==
--- NOTE | 2023-12-03 08:55 | US_ITS ---
STUDY: SECOND AND THIRD TRIMESTER OBSTETRICAL ULTRASOUND REASON FOR EXAM: Female, 23 years old well being, part previa -- 28 weeks LMP: May 19, 2023. TECHNIQUE: Transabdominal TECHNICAL QUALITY: Adequate. PRIOR ULTRASOUND: Comparison is made with prior study dated October 07, 2023. FINDINGS: There is a single intrauterine fetus. The fetus is in a cephalic presentation. There is demonstrated cardiac activity with a heart rate of 158 bpm. There is a normal amniotic fluid volume. The largest amniotic fluid pocket measures 6.0 cm. The amniotic fluid index (LUCIE) is 18.4 cm. The placenta is posterior in location and is not low lying. There are Grade 0 placental changes. The cervix measures 4.5 cm in length. The adnexal regions are not visualized. BIOMETRY: BPD: 7.45 cm: 29 weeks, 6 days HC: 26.75 cm: 29 weeks, 1 days AC: 25.5 cm: 29 weeks, 5 days FL: 5.49 cm: 29 weeks, 0 days CI: 80% FL/BPD: 74% FL/HC: 21% FL/AC: HC/AC: 1.05 age by current US: 29 weeks, 1 days. GAIL by current US: February 17, 2024. Estimated weight: 1460 grams, +/- 212 grams, 83 %. age by prior US: 28 weeks, 2 days. GAIL by prior US: February 23, 2020. Age by LMP: 28 weeks, 2 days. GAIL by LMP: February 23, 2024. US/OB Limited With Biometrics IMPRESSION: Single live intrauterine gestation with a mean gestational age of 28 weeks and 2 days. The measurements obtained today fall within the normal expected range. Electronically Signed: Thomas Carlson MD at 13:31 EDT ,
== END | disposition home or self-care (01) ==
PROVIDERS: PCP Nurse Practitioner Family; Referring Provider Nurse Practitioner Women's Health; Visit Provider Nurse Practitioner Women's Health
DX: O44.20 Partial placenta previa NOS or without hemorrhage, unspecified trimester (principal); Z3A.00 Weeks of gestation of pregnancy not specified
CPT/HCPCS: 76816

== ENCOUNTER → 2024-01-29 | Outpatient (CLI) | payer SELFPAY | END | disposition home or self-care (01) | LOC: LABSPEC 09:58 | PROVIDERS: PCP Nurse Practitioner Family; Referring Provider Obstetrics & Gynecology; Visit Provider Obstetrics & Gynecology | DX: O09.92 Supervision of high risk pregnancy, unspecified, second trimester (principal); Z3A.00 Weeks of gestation of pregnancy not specified | CPT/HCPCS: 87077; 87081; 87186 ==

== ENCOUNTER 2024-02-10 19:25 | Inpatient (IN) | payer SELFPAY ==
[2024-02-10] VITALS (8 sets, daily range): BP systolic 98–118; BP diastolic 54–66; PULSE 89–102; RESP 16; TEMP 36.6–36.8; O2SAT 96–98; BMI 33.5
--- NOTE | 2024-02-10 19:12 | HP.PCM.OB_ITS ---
HPI - General General Date of Admission: 02/10/24 Date of Service: 02/10/24 HPI Narrative MERCEDES VAUGHN, is a 23 F 38.1 weeks who presents to unit with decreased movement over the last 4 hours. Has had 2 variable decelerations, one with acoustic stimulation. Decision made for induction of labor. Maternal Data Information GAIL Calculator Estimated Delivery Date Method Current WG Current Estimate 02/23/24 LMP (Certain) 38w 1d Final GAIL: 02/10/24 Final GAIL Source: US >20 weeks Gestational age: 38.1 weeks [facility] Medical History Superficial varicosities Headache Gestational HTN Home Medications ?Medication ?Instructions ?Recorded ?Last Taken ?Type docosahexaenoic acid 200 mg mg PO 07/23/23 02/10/24 06:28 History capsule (Algal [place]-3 DHA) magnesium glycinate mg PO 07/23/23 Unknown History vitamins no.163-iron tab PO 07/23/23 Unknown History bis-gly 20 mg-folate no.10 1 mg tablet (PNV Tabs 20-1) calcium carbonate (Calcium 600) 600 mg PO DAILY 07/26/23 02/09/24 12:27 History aspirin 81 mg chewable tablet 81 mg PO QDAY 01/15/24 02/09/24 22:26 History Allergy/AdvReac Type Severity Reaction Status Date / Time No Known Allergies Allergy Verified 02/10/24 18:25 Family History Grandfather Heart disease Mother CVA (cerebral vascular accident), Onset Age: 35 VSD (ventricular septal defect) Social History adopted: No household members: spouse and children number of children: 1 current occupational status: unemployed current occupation: [employer] pets and animals: No history of recent travel: Yes sexually active: Yes Smoking Status: Never smoker alcohol intake: never substance use type: does not use well-balanced diet: daily or most days caffeine: No eating out: 1-3 times/week during the past year weight has: remained stable what type of physical activity do you participate in: walking frequency: 3-4 times per week duration: 15-30 minutes/day jyoti/sikhism: Spiritism seatbelt use: always do you feel safe at home: Yes additional social history: - Mu History 2 Elective abortions Hx Para 1 Spontaneous abortions Hx # Term Pregnancies Ectopic pregnancies Hx # Pregnancies Multiple births # of living children 1 Past Pregnancies Del. Date Name GA/Weeks Outcome Route Bth Weight Gen Labor Lgth Anesthesia Del Locatn Provider FOB 05/04/21 Sam 41 live - full term vacuum 9lbs 5oz Male ep idural [facility] Sohail Dobbins Delivery Date: 05/04/21 Last Updated by: Candace Leblanc gestational hypertension, vacuum delivery Visit Details Expected Delivery Route/Plan Labor Preferences- CB/BF classes: [] labor support person: [] labor intervention preferences: [] pain management options preferred: [] cut cord/dad catch: [] : [] PP control planned: [] discussed possible routes of delivery and associated risks: [] special requests: [] Plans Covid status: [] Flu vaccine: [] Tdap vaccine: decline Rhogam: [na LARC form signed: declined movement and labor precautions reviewed. Problem list reviewed and updated with the most current plan of care details and appropriate orders placed. Relevant counseling for the gestational age provided. Continue routine care and follow up unless otherwise noted in visit notes/problem list details OB Flowsheet Initial Weight: Not Recorded Date -?-?-?-?-?-?-?-?-?-?-?-?- EGA Weight BP Urine Prot -?-?-?-?-?-?-?-?-?-?-?-?- Glucose FHR FuHt Pres Dilation -?-?-?-?-?-?-?-?-?-?-?-?- Effaced St Visit Note 07/26/23 -?-?-?-?-?-?-?-?-?-?-?-?- 9w 5d 196 lb 6 oz 124/79 -?-?-?-?-?-?-?-?-?-?-?-?- 168 -?-?-?-?-?-?-?-?-?-?-?-?- kw- CRL cons wit h dates. declines NIPT. baseline Pre e labs added to NOB labs kw- CRL cons with dates. dec lines NIPT. baseline Pre e labs added to NOB labs. asa 81 mg advised 08/28/23 -?-?-?-?-?-?-?-?-?-?-?-?- 14w 3d 195 lb 4 oz 101/66 Nega tive -?-?-?-?-?-?-?-?-?-?-?-?- Negative 158 -?-?-?-?-?-?-?-?-?-?-?-?- JV- starting to feel better. no spotting or cramping and starting to feel some fluttery movements. 09/23/23 -?-?-?-?-?-?-?-?-?-?-?-?- 18w 1d 198 lb 107/72 Negative -?-?-?-?-?-?-?--?-?-?-?-?- Negative 145 -?-?-?-?-?-?-?-?-?-?-?-?- Sm- no vb lof go od fm 10/22/23 -?-?-?-?-?-?-?-?-?-?-?-?- 22w 2d 204 lb 100/60 Negative -?-?-?-?-?-?-?-?-?-?-?-?- Negative 155 -?-?-?-?-?-?-?-?-?-?-?-?- MH-No VB, LOF. G ood FM. 28 wk US to check placenta ordered 11/19/23 -?-?-?-?-?-?-?-?-?-?-?-?- 26w 2d 208 lb 6 oz 111/73 -?-?-?-?-?-?-?-?-?-?-?-?- 150 26 -?-?-?-?-?-?-?-?-?-?-?-?- JV- passed 1 hr today, normal cbc. no complaints. has rpt ultrasound in2 weeks. 12/05/23 -?-?-?-?-?-?-?-?-?-?-?-?- 28w 4d 210 lb 106/70 Negative -?-?-?-?-?-?-?-?-?-?-?-?- Negative 150 28 -?-?-?-?-?-?-?-?-?-?-?-?- SM- no vb lof go od fm no regular ctx 12/19/23 -?-?-?-?-?-?-?-?-?-?-?-?- 30w 4d 210 lb 105/69 Negative -?-?-?-?-?-?-?-?-?-?-?-?- Negative 160 30 -?-?-?-?-?-?-?-?-?-?-?-?- KW-no vb/lof/ctx . good fm. 01/02/24 -?-?-?-?-?-?-?-?-?-?-?-?- 32w 4d 216 lb 2 oz 109/71 -?-?-?-?-?-?-?-?-?-?-?-?- 147 33 -?-?-?-?-?-?-?-?-?-?-?-?- JV- no lof, vagi nal bleeding, or dec fm. no complaints at this time. 01/15/24 -?-?-?-?-?-?-?-?-?-?-?-?- 34w 3d 218 lb 99/64 Negative -?-?-?-?-?-?-?-?-?-?-?-?- Negative 140 35 -?-?-?-?-?-?-?-?-?-?-?-?- SM- no vb lof go od fm no regular ctx unsure about presentaiton will scan next time 01/29/24 -?-?-?-?-?-?-?-?-?-?-?-?- 36w 3d 220 lb 112/72 Negative -?-?--?-?-?-?-?-?-?-?-?-?- Negative 145 36 Cephalic -?-?-?-?-?-?-?-?-?-?-?-?- JV- GBS collecte d. Vtx on us today, anjana is 20. no complaints. declines pelvic exam. 02/05/24 -?-?-?-?-?-?-?-?-?-?-?-?- 37w 3d 221 lb 115/76 Negative -?-?-?-?-?-?-?-?-?-?-?-?- Negative 140 37 Cephalic -?-?-?-?-?-?-?-?-?-?-?-?- SM- no vb lof go od fm nor egular ctx NST FHR Rate Baby A Baseline: 140 Variability:: Moderate Accelerations:: 15 x 15 Decelerations:: None NST Reactive:: Yes FHR Category:: Category I Uterine Activity:: 2-4 minute contractions ROS Constitutional Constitutional: Denies change in weight, fatigue, fever(s), headache(s), poor appetite or weakness Eyes Eyes: Denies blurry vision, change in vision, floaters, seeing flashes or spots in vision ENT HEENT: Denies dizziness, headache(s), loss taste/smell or sore throat Cardiovascular Cardiovascular: Denies chest pain, dizziness, dyspnea, irregular heart rhythm, lightheadedness, palpitations or rapid heart rate Respiratory/Chest Respiratory/Chest: Denies change in mental status, chest tightness, cough, dyspnea or breast pain Gastrointestinal Gastrointestinal: Denies anorexia, chewing difficulty, constipation, diarrhea or weight changes Genitourinary Genitourinary: Denies difficulty urinating, dysuria, flank pain, genital pain, urinary frequency or urinary urgency Musculoskeletal Musculoskeletal: Denies back pain, difficulty walking, extremity pain, joint pain, muscle cramps or muscle weakness Integumentary Integumentary: Denies lesions or unusual bruising Neurologic Neurologic: Denies abnormal movements, abnormal speech, dizziness, numbness, seizure-like activity, syncope or weakness Psychiatric Psychiatric: Denies behavioral changes, change in appetite, confusion, depression, homicidal ideation, suicidal ideation or suicidal thoughts Endocrine Endocrinology: Denies excessive sweating, polydipsia or polyuria Hematologic/Lymphatic Hematologic/Lymphatic: Denies anemia Allergic/Immunologic Allergic/Immunologic: Denies itchy eyes, lip swelling, throat swelling, tongue swelling or wheezing Vital Signs Vital Signs Vital Signs: 02/10/24 18:22 02/10/24 18:22 02/10/24 18:22 Temperature Temperature Source Temporal Pulse Rate 99 Respiratory Rate 16 Blood Pressure BP Systolic BP Diastolic Pulse Ox 02/10/24 18:22 02/10/24 18:22 02/10/24 18:24 Temperature 97.8 F Temperature Source Pulse Rate Respiratory Rate Blood Pressure 112/66 BP Systolic 112 BP Diastolic 66 Pulse Ox 97 02/10/24 18:24 Temperature Temperature Source Pulse Rate 100 Respiratory Rate Blood Pressure BP Systolic BP Diastolic Pulse Ox Weight Weight: 221 lb Body Mass Index (BMI) 33.5 Physical Exam Const alert, oriented x3 and no apparent distress General Appearance: cooperative Orientation / Consciousness: awake HEENT normocephalic Neck full ROM Lymph Lymphatic: no lymphadenopathy noted Chest inspection of chest normal Resp normal respiratory effort and normal air movement Effort and Inspection: able to speak in complete sentences and symmetric chest movement GI soft to palpation and non-tender Inspection: gravid Palpation: soft; Negative for tender external exam normal Back/Spine normal to inspection Extremity normal to inspection and full ROM Skin no rashes or lesions noted Psych mental status grossly normal Appearance: grossly normal Speech: normal speech Labs Labs Labs: Blood Type A POSITIVE Antibody Screen NEGATIVE Hct 35.5 % (37-47) L Hgb 11.8 g/dL (12.0-15.0) L Obstetrics Ultrasound Syphilis Total Ab Non-reactive Rubella IgG Antibody Non-Reactive (Nonreactive) Hep Bs Antigen Non-Reactive (Nonreactive) Hepatitis C Antibody Non-Reactive (Nonreactive) Chlamydia DNA (YULISA) Negative (Negative) N.gonorrhoeae DNA (YULISA) Negative (Negative) HIV 1&2 Antibody Non-Reactive (Nonreactive) Glucose 1 Hr 50 gm 113 mg/dL (70-140) Rhogam given: No Assessment & Plan (1) Positive GBS test: COMMENT: plan PCN in labor (2) Rubella non-immune status, antepartum: COMMENT: avoidance and recommend vaccination post (3) Hx of pre-eclampsia, prior , currently : COMMENT: very end of resolved a week after delivery (4) Supervision of high-risk : QUALIFIERS: Trimester: second trimester Qualified Code(s): O09.92 - Supervision of high risk , unspecified, second trimester COMMENT: PRR, , GAIL 02/23/24, girl (name secret) PC Sam, Mu (5) : QUALIFIERS: Weeks of gestation: 37 weeks Qualified Code(s): Z3A.37 - 37 weeks gestation of COMMENT: declined ntd genetic & carrier testing, nl anatomy (6) Encounter for induction of labor: PLAN: Patient presents IOL, plan management for with pitocin/AROM. Pain management: plans epidural. GBS positive, plan PCN. Management of any complications: see problem list I have reviewed the [facility] and made any clinically relevant updates. Dr West aware of assessment and plan, agrees with admission. (7) Decreased movement affecting management of mother, antepartum: (8) Variable heart rate decelerations, antepartum: Charges/Coding Multi Select Codes Urinary/Genital Urinary/Genital CPT Codes: No Charge
[2024-02-10 20:08] LABS: Absolute Lymphocyte Count 2.45 X10^3/uL (0.83-4.51); Basophil# 0.06 X10^3/uL; Basophil% 0.4 % (0-1); Eosinophils% 0.7 % (0-5); Hematocrit 35.8 % (37-47); Lymphocyte # 2.45 X10^3/ul (0.83-4.51); Lymphocyte % 16.8 % (19-41); Mean Corp Hgb Conc 33.5 g/dL (32-36); Mean Corpuscular Hgb 31.7 pg (27.0-32.0); Mean Corpuscular Volume 94.7 fL (81-99); Mean Platelet Vol. 10.8 fl (6.2-12.0); Monocyte# 0.83 X10^3/uL; Monocyte% 5.7 % (0-10); NRBC Flagged by Analyzer 0 % (0-5); Neutrophil # 10.97 X10^3/uL (2.7-7.7); Neutrophil % 75.4 % (47-70); Platelet Count 197 K/mm3 (150-450); RBC Distribution Width CV 12.7 % (11.6-14.6); RBC Distribution Width SD 43.9 fl (35.1-43.9); Red Blood Count 3.78 M/mm3 (4.2-5.4); White Blood Count 14.6 K/mm3 (4.4-11.0)
[2024-02-10] MEDS: Penicillin G Pot 5,000,000 UNITS in 0.9% Normal Saline (100mL MB+) 100 ML 150 UNITS IV (20:36)
[2024-02-10] MEDS: Lactated Ringers 1,000 ML 50 ML IV (20:36)
[2024-02-10] MEDS: Oxytocin 15 Units/NS 250ml 15 UNITS/250 ML IV.SOLN 2 UNITS IV (20:42)
[2024-02-10 20:45] LABS: Syphilis Antibodies Non-reactive
[2024-02-11] VITALS (67 sets, daily range): BP systolic 80–137; BP diastolic 40–71; PULSE 83–202; RESP 14–16; TEMP 36.7–37; O2SAT 91–100
[2024-02-11] MEDS: Penicillin G 3,000,000 Units 50 ML 100 UNITS IV ×2 (00:39→04:55)
--- NOTE | 2024-02-11 02:42 | PCM.PN.BLA ---
Progress Note Coping well with contractions - desires at some point current tracing: FHT: 140 Moderate variability reactive no decelerations category I tracing, occasional variables at times [place]: 2-5 minutes Contractions Membranes:intact SVE: 4/60/-3 A/P: Continue with position changes Titrate pitocin per protocol Plan AROM in am after epidural placement Epidural per anesthesia PCN for GBS prophylaxis Anticipate Dr West aware of above assessment and agrees with plan of care Assessment & Plan Assessment/Plan (1) Variable heart rate decelerations, antepartum: (2) Decreased movement affecting management of mother, antepartum: (3) Encounter for induction of labor: (4) Positive GBS test: (5) Rubella non-immune status, antepartum: (6) Hx of pre-eclampsia, prior , currently : (7) Supervision of high-risk : QUALIFIERS: Trimester: second trimester Qualified Code(s): O09.92 - Supervision of high risk , unspecified, second trimester (8) : QUALIFIERS: Weeks of gestation: 37 weeks Qualified Code(s): Z3A.37 - 37 weeks gestation of Multi Select Codes Urinary/Genital Urinary/Genital CPT Codes: No Charge
[2024-02-11] MEDS: Lactated Ringers 1,000 ML 999 ML IV (04:34)
[2024-02-11] MEDS: Ondansetron 4 MG/2 ML Vial IV (05:06)
[2024-02-11] MEDS: 0.9% Saline Lock 10 ML Syringe IV (05:07)
[2024-02-11] MEDS: fentaNYL-bupivacaine (epidural) 100 ML BAG EPIDURAL (05:29)
[2024-02-11] MEDS: Lactated Ringers 1,000 ML 50 ML IV (05:37)
--- NOTE | 2024-02-11 07:41 | EX.PCM.OBVAG ---
Assessment & Plan (1) Variable heart rate decelerations, antepartum: (2) Decreased movement affecting management of mother, antepartum: (3) Encounter for induction of labor: (4) Positive GBS test: COMMENT: plan PCN in labor (5) Rubella non-immune status, antepartum: COMMENT: avoidance and recommend vaccination post (6) Hx of pre-eclampsia, prior , currently : COMMENT: very end of resolved a week after delivery (7) Supervision of high-risk : QUALIFIERS: Trimester: second trimester Qualified Code(s): O09.92 - Supervision of high risk , unspecified, second trimester COMMENT: PRR, , GAIL 02/23/24, girl (name secret) TOBIAS Vargas, Mu (8) : QUALIFIERS: Weeks of gestation: 37 weeks Qualified Code(s): Z3A.37 - 37 weeks gestation of COMMENT: declined ntd genetic & carrier testing, nl anatomy (9) Vaginal delivery: COMMENT: SM IOL dec fm girl Isabel 38 Maternal Data Information GAIL Calculator Estimated Delivery Date Method Current WG Current Estimate 02/23/24 LMP (Certain) 38w 2d Vaginal Delivery Maternal Presentation Maternal Presentation: presents with dec fm had variable on the monitor so kept and induced. Vaginal Delivery Information Procedure Performed: Spontaneous Vaginal Delivery Surgeon/Practitioner: Lelia Cano Date of Procedure: 02/11/24 Pre-Procedure Diagnosis: see a/p diagnoses Post-Procedure Diagnosis: same Type of anesthesia: Epidural Special Medications: none Estimated Blood Loss: 300 Findings Description of procedure: Patient began pushing and delivered the head in the SARA presentation. The head was delivered atraumatically. The anterior and posterior shoulders delivered without complication followed by the rest of the infant and the was placed on the maternal abdomen. Delayed cord clamping was employed for approximately 60 seconds. Cord was clamped and cut and gentle traction was applied to the cord and the placenta delivered spontaneously immediately following it was noted to be intact with three-vessel cord. The perineum and vagina were inspected and noted to have a first degree laceration repaired in the usual fashion with 3-0 rapide. EBL was 300. Patient and infant tolerated delivery well. Cord Vessel Description: 3 Vessels Delayed Cord Clamping: Yes Complication Complications: No Procedures Urinary/Genital [id number]: [id number] Vaginal Delivery [facility]
--- NOTE | 2024-02-11 07:42 | PCM.DC ---
Discharge Instructions Diet Discharge Diet: No restrictions Activity Discharge Activity: Return to Normal Activity, May Not Drive (while taking narcotic pain medications.) and May Shower May resume sexual activity in: 4-6 weeks Dressing / Incision Call your doctor if your incision/area has: Continuous Slow Oozing, Sudden Increased Bleeding, Increased Pain/ Swelling, Increased Redness and Foul Smelling Discharge Follow Up Care Please Follow Up With: Lelia Cano MD When: Call [phone] to make an appointment with your doctor in 6 weeks. If you had elevated blood pressure or 4th degree laceration, you will need to be seen in 2 weeks. Test Results: Test results from this visit will be discussed in further detail at your follow-up appointment, if applicable. Discharge Plan Admission Admit Date/Time: 02/10/24 19:25 Attending Provider: Lelia Cano Primary Care Provider: Ludivina Enriquez NP Consulting Providers: Maria Elena Blue Discharge Orders/Prescriptions Prescriptions: No Action PNV Tabs 20-1 20 mg iron- 1 mg tablet PO Algal [place]-3 DHA 200 mg capsule PO magnesium glycinate 100 mg magnesium capsule PO calcium carbonate [Calcium 600] 600 mg calcium (1,500 mg) tablet 600 mg PO DAILY aspirin 81 mg tablet,chewable 81 mg PO QDAY Referrals / Follow Up: Ludivina Enriquez ENROLLMENT MANAGER, ENROLLMENT MANAGER-C [Primary Care Provider] -
[2024-02-11] MEDS: Oxytocin 15 Units/NS 250ml 15 UNITS/250 ML IV.SOLN 83 UNITS IV (07:45)
[2024-02-11] MEDS: Acetaminophen 500 MG Tablet 1000 MG PO ×2 (10:02→20:20)
[2024-02-11] MEDS: Naproxen 500 MG Tablet PO (13:53)
[2024-02-12] VITALS (9 sets, daily range): BP systolic 87–109; BP diastolic 50–69; PULSE 79–97; RESP 16; TEMP 36.8–36.9; O2SAT 97
[2024-02-12] MEDS: Naproxen 500 MG Tablet PO ×2 (02:44→11:18)
--- NOTE | 2024-02-12 07:53 | PCM.PN.OB ---
Subjective Subjective Patient doing well without complaints. Tolerating PO. Ambulating and voiding without difficulty. Feeding well. Denies chest pain, shortness of breath, calf pain/swelling, fevers, chills, lightheadedness. Objective Data Objective Data Vital Signs: Vital Signs Temp Pulse Resp BP Pulse Ox O2 Del Method 98.4 F 85 16 102/53 L 97 Room Air 02/12/24 04:50 02/12/24 04:54 02/12/24 04:50 02/12/24 04:54 02/12/24 04:53 02/12/24 04:50 Oxygen Delivery Method Room Air Weight: 221 lb Body Mass Index (BMI) 33.5 Intake & Output: Intake and Output for Last 24 Hours 02/10/24 02/11/24 02/12/24 23:59 23:59 23:59 Intake Total 117.50 / 117.50 3587.50 / 3587.50 Output Total 800 / 800 2300 / 2300 Balance -682.50 / -682.50 1287.50 / 1287.50 Lab / Micro Data 02/10/24 19:50 Physical Exam Const alert and oriented x3 HEENT normocephalic Eyes PERRL Neck full ROM Resp normal respiratory effort GI soft to palpation GI Narrative: FF below U Assessment & Plan (1) Vaginal delivery: COMMENT: SM IOL dec fm girl Isabel 38 (2) Rubella non-immune status, antepartum: COMMENT: avoidance and recommend vaccination post PLAN: Plan s/p PPD # 1 1. routine post delivery care 2. breast feeding- support given 3. rh positive 4. rubella nonimmune 5. home today
[2024-02-12] MEDS: Senna/Docusate Sodium 1 Tablet PO (08:14)
[2024-02-12] MEDS: Acetaminophen 500 MG Tablet 1000 MG PO (09:51)
--- NOTE | 2024-02-12 10:39 | VDLE_ITS ---
Reason For Study: Left leg swelling Procedure LEFT This is a venous duplex using B-mode, color GSV is normal. flow and spectral Doppler. CFV is compressible, spontaneous, phasic, Exam performed portable in patient room. competent, and demonstrates normal A preliminary report was called and/or augmentation. faxed to Gayle GUZMAN. FV is compressible, spontaneous, phasic, competent and demonstrates normal augmentation. POP V is compressible, spontaneous, phasic, competent and demonstrates normal augmentation. T/P Trunk is compressible. PTV is compressible. LT PerV is compressible. Thrombus filled varicose vein noted in the left posterior/lateral prox thigh-prox calf. It is dilated and NONCOMPRESSIBLE. Comes from [facility]. VL/Venous Duplex US, Unilateral Interpretation Summary Acute superficial vein thrombosis noted in lateral proximal thigh to proximal c petra varicosities. Deep veins of the left lower extremity are patent and compressible segmentally. There is no evidence of left lower extremity deep vein thrombosis. The left great saphenous vein ra ears patent and compressible segmentally. Ordering Physician: Rocio Mac Referring Physician: Ludivina Enriquez Performed By: Erna Garay RVT
--- NOTE | 2024-02-12 10:49 | NURSING ---
1040 pt verbalizes having some pain on the back of her left thigh- visable varicose veins observed, no redness, tender to touch; Dr frank called and made aware order for doppler scan
--- NOTE | 2024-02-12 11:00 | NURSING ---
here to do scan of left leg
== END 2024-02-12 12:50 | disposition home or self-care (01) | DRG 807 ==
LOC: WP 21:44
PROVIDERS: Advanced Practice Midwife; Admitting Provider Obstetrics & Gynecology; PCP Nurse Practitioner Family; Referring Provider Obstetrics & Gynecology; Visit Provider Obstetrics & Gynecology
DX: O36.8130 Decreased fetal movements, third trimester, not applicable or unspecified (principal); Z37.0 Single live birth; B95.1 Streptococcus, group B, as the cause of diseases classified elsewhere; O36.8330 Maternal care for abnormalities of the fetal heart rate or rhythm, third trimester, not applicable or unspecified; O99.820 Streptococcus B carrier state complicating pregnancy; Z3A.38 38 weeks gestation of pregnancy; O70.0 First degree perineal laceration during delivery
CPT/HCPCS: 59025; 59050; 85025; 86780; 86850; 86900; 86901; 93971; 99221; J7120; A4216; G0378; J2405